=== PATIENT | female | born 1975 | race Caucasian/White ===

== ENCOUNTER 2021-01-17 12:22 | Emergency (ER) | payer OTHER ==
[2021-01-17 12:38] VITALS: BMI 28.1
[2021-01-17] MEDS ORDERED: IBUPROFEN 600 MG TABLET (FP) PO ONE ×2 (13:09→13:20)
[2021-01-17] MEDS ORDERED: LIDOCAINE 5% TOPICAL PATCH TP ONE (13:16)
[2021-01-17] MEDS ORDERED: LIDOCAINE 5% TOPICAL PATCH ONE (13:20)
[2021-01-17] MEDS ORDERED: ACETAMINOPHEN 325 MG TABLET (FP) PO ONE (14:40)
[2021-01-17] MEDS ORDERED: CYCLOBENZAPRINE HCL 10 MG TABLET (FP) PO ONE (14:40)
[2021-01-17] MEDS ORDERED: METOCLOPRAMIDE HCL 10 MG TABLET (FP) PO ONE ×2 (14:40→14:43)
[2021-01-17] MEDS ORDERED: ACETAMINOPHEN 325 MG TABLET (FP) ONE (14:42)
[2021-01-17] MEDS ORDERED: CYCLOBENZAPRINE HCL 10 MG TABLET (FP) ONE (14:43)
[2021-01-17] MEDS ORDERED: morphine CARPU-JECT 4 MG/1 ML DISP.SYRIN IVPUSH ONE (16:23)
[2021-01-17] MEDS ORDERED: morphine SULFATE 4 MG/ML VIAL ONE (16:35)
[2021-01-17 17:28] LABS: BASO % 0.4 % (0-2.0); EOS % 1.7 % (0-4.5); HEMATOCRIT 39.1 % (32.4-45.2); HEMOGLOBIN 13.2 GM/dL (10.7-15.3); LYMPH % 34.2 % (8-40); MCH 31.5 pg (25.7-33.7); MCHC 33.8 g/dl (32.0-36.0); MEAN PLT VOLUME 8.2 fl (7.5-11.1); MONO % 4.4 % (3.8-10.2); NEUT % 59.3 % (42.8-82.8); PLATELET COUNT 310 K/MM3 (134-434); RDW 13.3 % (11.6-15.6); WHITE BLOOD COUNT 5.7 K/mm3 (4.0-10.0)
[2021-01-17 17:45] LABS: LIPASE 89 U/L (73-393); MAGNESIUM 1.9 mg/dL (1.8-2.4)
[2021-01-17 17:48] LABS: PHOSPHOROUS 3.6 mg/dL (2.5-4.9)
[2021-01-17 18:08] LABS: CHLORIDE 106 mmol/L (98-107); SODIUM 141 mmol/L (136-145)
[2021-01-17 18:10] LABS: CALCIUM 9.3 mg/dL (8.5-10.1)
[2021-01-17 18:11] LABS: ALBUMIN 4.1 g/dl (3.4-5.0); ANION GAP 6 MMOL/L (8-16); BLOOD UREA NITROGEN 9.8 mg/dL (7-18); CO2 29 mmol/L (21-32); GLUCOSE,RANDOM 84 mg/dL (74-106)
[2021-01-17 18:14] LABS: CREATININE 0.7 mg/dL (0.55-1.3); SGOT/AST 20 U/L (15-37); SGPT/ALT 31 U/L (13-61)
[2021-01-17 18:15] LABS: BILIRUBIN,TOTAL 0.4 mg/dL (0.2-1); TOT PROT 7.6 g/dl (6.4-8.2)
[2021-01-17 18:17] LABS: ALK PHOS 105 U/L (45-117)
[2021-01-17 18:36] VITALS: BP 112/70; PULSE 63; TEMP 97.8
[2021-01-17] MEDS ORDERED: LIDOCAINE PATCH REMOVAL MC ONE (22:00)
== END 2021-01-17 19:03 | disposition home or self-care (01) ==
LOC: JER 12:22
PROC: 3E033NZ Introduction of Analgesics, Hypnotics, Sedatives into Peripheral Vein, Percutaneous Approach (ICD-10-PCS; principal; 2021-01-17)
DX: M54.2 Cervicalgia (principal)
CPT/HCPCS: 71046-TC-FY; 80053; 82550; 83690; 83735; 84100; 84484; 84703; 85025; 93005; 93010; 99285-25

== ENCOUNTER 2023-09-16 14:10 | Emergency (ER) | payer SELFPAY ==
[2023-09-16 14:26] VITALS: BP 124/76; RESP 18; BMI 26.5
[2023-09-16] MEDS ORDERED: ACETAMINOPHEN 1000 MG/100 ML BAG IVPB ONE (15:41)
[2023-09-16] MEDS ORDERED: SODIUM CHLORIDE 0.9% 500 ML INFUS.BAG IV ONE (16:03)
[2023-09-16 16:15] LABS: BASO % 0.6 % (0-2.0); HEMATOCRIT 41.4 % (32.4-45.2); HEMOGLOBIN 13.8 GM/dL (10.7-15.3); LYMPH % 37.3 % (8-40); MCHC 33.4 g/dl (32.0-36.0); MEAN CELL VOLUME 95.8 fl (80-96); MEAN PLT VOLUME 7.4 fl (7.5-11.1); MONO % 6.3 % (3.8-10.2); NEUT % 53.8 % (42.8-82.8); PLATELET COUNT 251 10^3/uL (134-434); RBC 4.33 M/mm3 (3.60-5.2); WHITE BLOOD COUNT 6.4 K/mm3 (4.0-10.0)
[2023-09-16] MEDS ORDERED: ACETAMINOPHEN INJECTION 100 ML IVPB ONE (16:15)
[2023-09-16 16:36] LABS: URINE APPEARANCE CLOUDY; URINE BILIRUBIN NEGATIVE (NEGATIVE); URINE COLOR DK YELLOW; URINE GLUCOSE (UA) NEGATIVE (NEGATIVE); URINE KETONE NEGATIVE (NEGATIVE); URINE LEUK ESTERASE NEGATIVE (NEGATIVE); URINE NITRITE NEGATIVE (NEGATIVE); URINE PROTEIN NEGATIVE (NEGATIVE)
[2023-09-16 16:58] LABS: POTASSIUM 4.5 mmol/L (3.5-5.1)
[2023-09-16 16:59] LABS: ALBUMIN 4.4 g/dl (3.4-5.0); CALCIUM 10.7 mg/dL (8.5-10.1)
[2023-09-16 17:01] LABS: BLOOD UREA NITROGEN 10.4 mg/dL (7-18)
[2023-09-16 17:02] LABS: CREATININE 0.6 mg/dL (0.55-1.3)
[2023-09-16 17:04] LABS: BILIRUBIN,TOTAL 0.5 mg/dL (0.2-1); TOT PROT 8.3 g/dl (6.4-8.2)
[2023-09-16 23:05] VITALS: PULSE 78; TEMP 98
== END 2023-09-16 23:04 | disposition home or self-care (01) ==
LOC: JER 14:10
PROC: 3E033NZ Introduction of Analgesics, Hypnotics, Sedatives into Peripheral Vein, Percutaneous Approach (ICD-10-PCS; principal; 2023-09-16)
DX: R10.32 Left lower quadrant pain (principal); R94.5 Abnormal results of liver function studies; X50.0XXA Overexertion from strenuous movement or load, initial encounter; Y99.0 Civilian activity done for income or pay; Z20.822 Contact with and (suspected) exposure to COVID-19
CPT/HCPCS: 0241U-QW; 36415; 74177-TC; 76705-TC; 80053; 81003; 83690; 84703; 85025; 87086; 93005; 93010; 99285-25; Q9967